=== PATIENT | male | born 1950 | race Two or more races ===

== ENCOUNTER 2022-08-15 21:21 | Inpatient (IN) | payer MEDICAID ==
[~2022-08-15] VITALS: Ht 175.3 cm; Wt 57.3 kg
[2022-08-15] MEDS ORDERED: ASPIRIN 81 MG TAB.CHEW PO ONE (22:00)
[2022-08-15] MEDS ORDERED: NITROGLYCERIN OINT 1 GM PACKET TP ONE ×2 (22:00→22:53)
[2022-08-15 22:34] LABS: HEMATOCRIT 32.8 % (36.7-47.1); MEAN CORPUSCULAR HEMOGLOBIN 31.4 uug (23.8-33.4); MEAN CORPUSCULAR VOLUME 97.5 fL (73.0-96.2); PLATELET COUNT (AUTO) 109 K/uL (152-348)
[2022-08-15 22:48] LABS: CARBON DIOXIDE 30 mmol/L (21-32); CHLORIDE 91 mmol/L (98-107); CREATININE 3.5 mg/dL (0.6-1.3); GLUCOSE 79 mg/dL (74-106); POTASSIUM 4.7 mmol/L (3.5-5.1); UREA NITROGEN, BLOOD 42 mg/dL (7-18)
[2022-08-15 22:51] LABS: MAGNESIUM 2.3 mg/dL (1.8-2.4); PHOSPHOROUS 4.6 mg/dL (2.5-4.9)
[2022-08-15] MEDS ORDERED: ASPIRIN 81 MG TAB.CHEW ONE (22:52)
[2022-08-15 23:02] LABS: ALANINE AMINOTRANSFERASE 15 U/L (16-63); ALKALINE PHOSPHATASE 162 U/L (50-136); ASPARTATE AMINOTRANSFERASE 24 U/L (15-37); BILIRUBIN,DIRECT 0.6 mg/dL (0.0-0.2); BILIRUBIN,TOTAL 1.1 mg/dL (0.2-1.0); TOTAL PROTEIN, SERUM 8.1 g/dL (6.4-8.2)
--- NOTE | 2022-08-15 23:06 | NUR ---
LAB CALLED WITH PHILLIP Sagastume- 924. AWARE.
--- NOTE | 2022-08-15 23:35 | NUR ---
Called [facility] for panel call. 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
[2022-08-16] MEDS ORDERED: HEPARIN SODIUM,PORCINE 5,000 UNITS/ML VIAL IV ONE
[2022-08-16] MEDS ORDERED: HEPARIN SODIUM,PORCINE 5,000 UNITS/ML VIAL ONE (00:24)
[2022-08-16] MEDS ORDERED: HEPARIN/D5W DRIP 500 ML ONE (00:32)
[2022-08-16] MEDS ORDERED: MORPHINE SULFATE 2 MG/1 ML DISP.SYRIN IV PRN (01:45)
[2022-08-16] MEDS ORDERED: NITROGLYCERIN OINT 1 GM PACKET TP ONE (01:45)
[2022-08-16] MEDS ORDERED: ONDANSETRON 4 MG/2 ML VIAL IV PRN (01:45)
[2022-08-16] MEDS ORDERED: REMEDY ESSENTIAL ZINC PASTE 113 GM TP PRN (01:45)
[2022-08-16] MEDS ORDERED: ACETAMINOPHEN 325 MG TABLET PO PRN (01:45)
--- NOTE | 2022-08-16 01:56 | NUR ---
Called third floor to give report to Phyllis ORTIZ.
[2022-08-16] MEDS ORDERED: BISA-79 RC (02:32)
[2022-08-16] MEDS ORDERED: LACT10SO68 PO (02:32)
[2022-08-16] MEDS ORDERED: ACET325T53 PO (02:32)
[2022-08-16] MEDS ORDERED: ONDA-104 PO (02:32)
[2022-08-16] MEDS ORDERED: HYDR-4077 PO (02:32)
[2022-08-16] MEDS ORDERED: GABA-532 PO (02:32)
[2022-08-16] MEDS ORDERED: SEVE800T7 PO (02:32)
[2022-08-16] MEDS ORDERED: NITR0.4T SL (02:32)
[2022-08-16] MEDS ORDERED: FAMO-132 PO (02:32)
[2022-08-16] MEDS ORDERED: B CO1TAB6 PO (02:32)
[2022-08-16] MEDS ORDERED: SENN-291 PO (02:32)
[2022-08-16] MEDS ORDERED: AMLO-212 PO (02:32)
[2022-08-16] MEDS ORDERED: DOCU100T2 PO (02:32)
[2022-08-16] MEDS ORDERED: TRAM50TA2 PO (02:32)
[2022-08-16] MEDS ORDERED: MELA10CA PO (02:32)
[2022-08-16] MEDS ORDERED: NA P133E RC (02:32)
[2022-08-16] MEDS ORDERED: IV NORMAL SALINE 250 ML IV ONE (02:58)
[2022-08-16] MEDS ORDERED: SWABABLE VALVE TRANSFER SET EA MC ONE (02:58)
[2022-08-16] MEDS ORDERED: IOHEXOL 350 100 ML INFUS..BTL ONE (02:58)
[2022-08-16] MEDS ORDERED: HEPARIN/D5W DRIP 500 ML IV PRN ×2 (03:00)
--- NOTE | 2022-08-16 03:30 | NUR ---
Admitted a 71 years old male with Dx of CP and NSTEMI. Patient AAOx4. In no apparent distress. Denies any Chest pain at this time. Nitroglycerin oint order for 0145 not given. Patient was given Nitro patch at ER. Received patient from ER with Heparin drip running at 763.2units/hr via IV on right AC #20G. Dialysis site on left upper arm. In and out sinus rhythm and A. Fib, A paced. with HR of 78/min. Patient reported chronic back pain but tolerable at this time. Routine admission care done. Plan of care initiated. Safety measure initiated and call light within reached.
--- NOTE | 2022-08-16 03:35 | NUR ---
Transferred patient to third floor. DIANA Ferguson made aware of patient's arrival.
[2022-08-16 04:48] VITALS: BP 126/65
--- NOTE | 2022-08-16 04:51 | NUR ---
On O2 at 4LPM via NC. NO complain of SOB. O2 sat at 100%.
[2022-08-16 06:49] LABS: MEAN CORPUSCULAR VOLUME 98.5 fL (73.0-96.2); PLATELET COUNT (AUTO) 114 K/uL (152-348)
[2022-08-16] MEDS ORDERED: PANTOPRAZOLE SODIUM 40 MG TABLET.DR PO SCH (07:00)
--- NOTE | 2022-08-16 07:30 | NUR ---
RECEIVED PATIENT IN BED AWAKE ALERT AND ORIENTED X3 ANSWERS QUESTIONS APPROPRIATELY. NO SS OF ACUTE PAIN OR SOB ON 4L O2 VIA NC SATURATING 100%. ON HEPARIN DRIP FOR ACS MANAGEMENT. IN AND OUT SR/AFIB ON MONITOR
[2022-08-16 08:04] LABS: ALANINE AMINOTRANSFERASE 11 U/L (16-63); ALKALINE PHOSPHATASE 161 U/L (50-136); ASPARTATE AMINOTRANSFERASE 33 U/L (15-37); BILIRUBIN,TOTAL 1.1 mg/dL (0.2-1.0); CARBON DIOXIDE 28 mmol/L (21-32); CHLORIDE 91 mmol/L (98-107); CHOLESTEROL 117 mg/dL (<200); CREATININE 3.7 mg/dL (0.6-1.3); GLUCOSE 63 mg/dL (74-106); HDL CHOLESTEROL 54 mg/dL (40-60); MAGNESIUM 2.2 mg/dL (1.8-2.4); PHOSPHOROUS 5.4 mg/dL (2.5-4.9); POTASSIUM 4.8 mmol/L (3.5-5.1); TOTAL PROTEIN, SERUM 8.1 g/dL (6.4-8.2); TRIGLYCERIDES 52 MG/DL (30-150); UREA NITROGEN, BLOOD 46 mg/dL (7-18)
[2022-08-16] MEDS: AMIODARONE HCL 200 MG TABLET PO SCH ×2 (08:23→16:18)
--- NOTE | 2022-08-16 08:30 | NUR ---
SEEN AND EXAMINED BY DR FELIX FOR CARDIAC CONSULT, PLANNED TRANSFER TO [facility] FOR CARDIAC CANCERIZATION IN AM. SEE NOTES
[2022-08-16] MEDS ORDERED: ASPIRIN 81 MG TAB.CHEW PO SCH (09:00)
[2022-08-16] MEDS ORDERED: METOPROLOL TARTRATE 25 MG TABLET PO SCH (09:00)
--- NOTE | 2022-08-16 09:00 | NUR ---
TROPONIN FOR 0900 DRAWN 4482, RESULTS GIVEN TO DR MCDONOUGH AND ALSO DR BORDEN MADE AWARE. SEE NOTES. CONTINUE PLAN TO TRANSFER TO [place] FOR CARDIAC CATH IN AM.
[2022-08-16] MEDS ORDERED: MENT113O TP (12:24)
[2022-08-16] MEDS ORDERED: Morphine Sulfate Inj IV (12:24)
[2022-08-16] MEDS ORDERED: METO25TA6 PO (12:24)
[2022-08-16] MEDS ORDERED: PANT40TA49 PO (12:24)
[2022-08-16] MEDS ORDERED: ATOR40TA PO (12:24)
[2022-08-16] MEDS ORDERED: ASPI81TA31 PO (12:24)
[2022-08-16] MEDS ORDERED: AMIO200T6 PO (12:24)
[2022-08-16] MEDS ORDERED: ONDA4VIA23 IV (12:24)
[2022-08-16] MEDS ORDERED: [UNRECOGNIZED DRUG - CODE] IV (12:24)
--- NOTE | 2022-08-16 12:28 | NUR ---
PER DAIR[facility] BAR MANAGER CONVERSATION WITH DR SHARONDA MACK TO HOLD HEPARIN DRIP DURING TRANSFER WITH ACLS.
--- NOTE | 2022-08-16 13:12 | NUR ---
REPORT GIVEN TO [place] STAFF FOR CONTINUITY OF CARE, PICK-UP TIME 1600 VIA ACLS. OKAY TO HOLD HEPARIN VERIFIED WITH DR MCDONOUGH DURING TRANSFER
[2022-08-16 15:38] VITALS: BP 104/56
--- NOTE | 2022-08-16 16:27 | NUR ---
UPDATED [place] STAFF OF HEPARIN DRIP, PTT AT 1500 45.7 NO CHANGE ON THE DRIP 850 UNITS/HR (17 MLS/HR) PER PROTOCOL THEN FOLLOW-UP PTT IN AM
--- NOTE | 2022-08-16 17:00 | NUR ---
DISCHARGED TO [facility] VIA [facility], UPDATED NE [place] RN ABOUT THE HEPARIN DRIP.. PATIENT IN NO DISTRESS, NO C/O PAIN WITH SON AT BEDSIDE
[2022-08-16] MEDS ORDERED: GABAPENTIN 100 MG CAPSULE PO SCH (21:00)
[2022-08-16] MEDS ORDERED: ATORVASTATIN 40 MG TABLET PO SCH (21:00)
== END 2022-08-16 17:00 | disposition short-term general hospital (02) | DRG 190 ==
LOC: ER 21:21 → TELE3 23:00
PROVIDERS: ADMIT Nurse Practitioner Family; ATTEND Internal Medicine
DX: I24.9 Acute ischemic heart disease, unspecified (principal); I21.A1 Myocardial infarction type 2; I50.43 Acute on chronic combined systolic (congestive) and diastolic (congestive) heart failure; E43 Unspecified severe protein-calorie malnutrition; E87.1 Hypo-osmolality and hyponatremia; N18.6 End stage renal disease; R18.8 Other ascites; I69.354 Hemiplegia and hemiparesis following cerebral infarction affecting left non-dominant side; D63.8 Anemia in other chronic diseases classified elsewhere; I48.0 Paroxysmal atrial fibrillation; E11.22 Type 2 diabetes mellitus with diabetic chronic kidney disease; Z99.2 Dependence on renal dialysis; I50.9 Heart failure, unspecified; I25.10 Atherosclerotic heart disease of native coronary artery without angina pectoris; I25.2 Old myocardial infarction; Z68.1 Body mass index [BMI] 19.9 or less, adult; Z20.822 Contact with and (suspected) exposure to COVID-19; Z95.0 Presence of cardiac pacemaker; D75.89 Other specified diseases of blood and blood-forming organs; E53.8 Deficiency of other specified B group vitamins; R62.7 Adult failure to thrive; R17 Unspecified jaundice
CPT/HCPCS: 36415; 71045; 71275; 83735; 84100; 84484; 85025; 85730; 93005; 93307; A4663; G0378; J1644; Q9967